=== PATIENT | female | born 2000 | race Caucasian/White ===

== ENCOUNTER 2025-01-23 02:13 | Emergency (ER) | payer MEDICAID ==
[~2025-01-23] VITALS: Ht 165.1 cm; Wt 42.0 kg
[2025-01-23 02:14] VITALS: BP 121/81; PULSE 82; RESP 12; TEMP 36.8; O2SAT 99
[2025-01-23 02:45] LABS: BASOPHILS % 0.7 % (0.0-2.0); EOSINOPHILS % 2.9 % (0.0-5.0); HEMATOCRIT. 39.3 % (36.0-48.0); HEMOGLOBIN. 12.7 g/dL (12.0-16.0); LYMPHOCYTES % 22.9 % (20.0-50.0); MEAN PLATELET VOLUME 8.2 fl (7.4-10.4); MONOCYTES % 7.0 % (2.0-8.0); NEUTROPHILS % 66.5 % (40.0-76.0); PLATELET 272 x1000/uL (130-400); RED BLOOD CELL COUNT 4.45 mill/uL (4.2-5.4); RED CELL DISTRIBUTION WIDTH 12.3 % (11.6-14.6)
[2025-01-23 02:57] LABS: CREATININE 0.7 mg/dL (0.6-1.0); HCG SCREEN NEGATIVE; UREA NITROGEN BLOOD 10 mg/dL (9-23)
[2025-01-23 02:59] LABS: ASPARTATE AMINOTRANSFERASE 18 IU/L (<34); BILIRUBIN DIRECT 0.1 mg/dL (<=3.0); BILIRUBIN TOTAL 0.4 mg/dL (0.1-1.0); PROTEIN TOTAL 7.4 g/dL (6.0-8.3)
[2025-01-23] MEDS ORDERED: DICYCLOMINE HCL 10MG CAPSULE PO ONE (03:00)
[2025-01-23] MEDS ORDERED: MAGNESIUM/ALUMINUM HYDROXIDE/SIMETHICONE 30ML UDC PO ONE (03:00)
== END 2025-01-23 03:30 | disposition left against medical advice (07) ==
LOC: ER 02:13
DX: M79.602 Pain in left arm (principal); M79.601 Pain in right arm; R10.9 Unspecified abdominal pain
CPT/HCPCS: 36415; 80048; 80076; 84703; 85025; 99283